=== PATIENT | female | born 2005 | race African-American/Black ===

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

== ENCOUNTER 2024-07-18 06:50 | Emergency (ER) | payer MEDICAID ==
[~2024-07-18] VITALS: Ht 165.1 cm; Wt 81.0 kg
[2024-07-18 06:55] VITALS: O2SAT 98
[2024-07-18 08:19] LABS: CHLORIDE 107 mEq/L (98-107); POTASSIUM 4.1 mEq/L (3.5-5.1); SODIUM 141 mEq/L (136-145)
[2024-07-18 08:20] LABS: CALCIUM 9.1 mg/dL (8.7-10.4); CARBON DIOXIDE 28 mEq/L (21-32)
[2024-07-18 08:25] LABS: CREATININE 1.1 mg/dL (0.6-1.0); GLUCOSE 57 mg/dL (70-105); UREA NITROGEN BLOOD 13 mg/dL (9-23)
[2024-07-18 08:27] LABS: ACETAMINOPHEN < 2 ug/mL (10-30)
[2024-07-18 08:44] LABS: ETHANOL BLOOD < 10 mg/dL (<10)
[2024-07-18 08:46] LABS: HCG SCREEN NEGATIVE
[2024-07-18 08:48] LABS: BASOPHILS % 0.3 % (0.0-2.0); EOSINOPHILS % 0.3 % (0.0-5.0); HEMATOCRIT. 36.6 % (36.0-48.0); HEMOGLOBIN. 11.4 g/dL (12.0-16.0); LYMPHOCYTES % 7.5 % (20.0-50.0); MEAN CORPUSCULAR HEMOGLOBIN 26.2 pg (28.0-32.0); MEAN CORPUSCULAR HGB CONC 31.1 g/dL (31.0-37.0); MEAN CORPUSCULAR VOLUME 84.2 fL (81.0-99.0); MEAN PLATELET VOLUME 8.4 fl (7.4-10.4); MONOCYTES % 5.2 % (2.0-8.0); NEUTROPHILS % 86.7 % (40.0-76.0); PLATELET 287 x1000/uL (130-400); RED BLOOD CELL COUNT 4.35 mill/uL (4.2-5.4); WHITE BLOOD COUNT 14.2 x1000/uL (4.5-11.0)
[2024-07-18] MEDS ORDERED: ONDANSETRON 4MG ODT PO ONE (09:00)
[2024-07-18 09:11] LABS: TROPONIN I HIGH SENSITIVITY 4 ng/L (3.0-34)
[2024-07-18 10:32] LABS: TROPONIN I HIGH SENSITIVITY 4 ng/L (3.0-34)
[2024-07-18] MEDS: SODIUM CHLORIDE 0.9% 1,000 ML IV ONE (11:37)
[2024-07-18] MEDS: ONDANSETRON 4MG ODT PO NR (11:37)
[2024-07-18 13:36] VITALS: BP 113/63; PULSE 82; RESP 18; TEMP 36.61404; O2SAT 100
== END 2024-07-18 13:39 | disposition home or self-care (01) ==
LOC: ER 06:50
DX: T50.901A Poisoning by unspecified drugs, medicaments and biological substances, accidental (unintentional), initial encounter (principal); Y92.9 Unspecified place or not applicable
CPT/HCPCS: 80048; 80307; 80329; 80320; 82962; 84703; 85025; 84484; 36415; 96360; 99283; Q0162; J7030; Z7610 ×3; G0480

== ENCOUNTER 2025-02-28 01:34 | Emergency (ER) | payer MEDICAID ==
[~2025-02-28] VITALS: Ht 160 cm; Wt 82.0 kg
[2025-02-28 01:37] VITALS: O2SAT 98
[2025-02-28 02:44] LABS: BASOPHILS % 0.9 % (0.0-2.0); CHLORIDE 109 mEq/L (98-107); EOSINOPHILS % 1.3 % (0.0-5.0); HEMATOCRIT. 33.6 % (36.0-48.0); HEMOGLOBIN. 10.8 g/dL (12.0-16.0); LYMPHOCYTES % 14.2 % (20.0-50.0); MEAN CORPUSCULAR HEMOGLOBIN 26.2 pg (28.0-32.0); MEAN CORPUSCULAR HGB CONC 32.1 g/dL (31.0-37.0); MEAN CORPUSCULAR VOLUME 81.7 fL (81.0-99.0); MEAN PLATELET VOLUME 7.8 fl (7.4-10.4); MONOCYTES % 3.7 % (2.0-8.0); NEUTROPHILS % 79.9 % (40.0-76.0); PLATELET 355 x1000/uL (130-400); POTASSIUM 3.9 mEq/L (3.5-5.1); RED BLOOD CELL COUNT 4.12 mill/uL (4.2-5.4); RED CELL DISTRIBUTION WIDTH 17.5 % (11.6-14.6); SODIUM 142 mEq/L (136-145); WHITE BLOOD COUNT 13.7 x1000/uL (4.5-11.0)
[2025-02-28 02:45] LABS: CALCIUM 8.3 mg/dL (8.7-10.4); CARBON DIOXIDE 25 mEq/L (21-32)
[2025-02-28 02:47] LABS: HCG SCREEN NEGATIVE
[2025-02-28 02:50] LABS: CREATININE 1.2 mg/dL (0.6-1.0); ETHANOL BLOOD < 10 mg/dL (<10); GLUCOSE 85 mg/dL (70-105); UREA NITROGEN BLOOD 15 mg/dL (9-23)
[2025-02-28 02:54] LABS: PROTHROMBIN TIME 10.8 sec (9.6-11.0)
[2025-02-28 08:13] LABS: CLARITY URINE CLEAR (CLEAR); COLOR URINE YELLOW (YELLOW); GLUCOSE URINE NEGATIVE (NEGATIVE); KETONES URINE NEGATIVE (NEGATIVE); LEUKOCYTE ESTERASE URINE 1+ (NEGATIVE); NITRITE URINE NEGATIVE (NEGATIVE); OCCULT BLOOD URINE NEGATIVE (NEGATIVE); PROTEIN URINE NEGATIVE (NEGATIVE); SPECIFIC GRAVITY URINE 1.022 (1.005-1.030); UROBILINOGEN URINE 0.2 E.U./dL (0.2-1.0)
[2025-02-28 08:34] LABS: BACTERIA URINE TRACE; SQUAMOUS EPITHELIAL CELL URINE 2+ /lpf (RARE/1+)
[2025-02-28 08:35] LABS: MUCUS URINE TRACE /lpf (< = 2+)
[2025-02-28 08:36] LABS: RBC URINE 0-2 /hpf (0-2)
[2025-02-28 08:38] LABS: TRICHOMONAS URINE FEW
[2025-02-28 10:43] VITALS: BP 103/55; PULSE 83; RESP 20; TEMP 36.8; O2SAT 98
== END 2025-02-28 12:12 | disposition left against medical advice (07) ==
LOC: ER 01:34
DX: F11.90 Opioid use, unspecified, uncomplicated (principal); F12.90 Cannabis use, unspecified, uncomplicated; F10.90 Alcohol use, unspecified, uncomplicated; F17.200 Nicotine dependence, unspecified, uncomplicated; Z59.01 Sheltered homelessness; Y90.9 Presence of alcohol in blood, level not specified
CPT/HCPCS: 80048; 81003; 80320; 84703; 85025; 85610; 36415; 99283; Z7610 ×2; G0480

== ENCOUNTER 2025-04-20 02:19 | Emergency (ER) | payer MEDICAID ==
[~2025-04-20] VITALS: Ht 165.1 cm; Wt 90.4 kg
[2025-04-20 02:27] VITALS: BP 153/83; PULSE 84; RESP 20; TEMP 37.1; O2SAT 98
== END 2025-04-20 04:20 | disposition left against medical advice (07) ==
LOC: ER 02:40
DX: T40.414A Poisoning by fentanyl or fentanyl analogs, undetermined, initial encounter (principal); T40.5X4A Poisoning by cocaine, undetermined, initial encounter; Z53.21 Procedure and treatment not carried out due to patient leaving prior to being seen by health care provider; Y92.89 Other specified places as the place of occurrence of the external cause; R00.0 Tachycardia, unspecified
CPT/HCPCS: 93005; Z7610